=== PATIENT | female | born 1940 | race African-American/Black ===

== ENCOUNTER 2023-05-25 19:21 | Inpatient (IN) | payer MEDICARE, MEDICAID ==
[2023-05-25 19:57] LABS: Bilirubin Neg (Negative); Blood, Urine 25 (Negative); Clarity Slightly Cloudy (Clear); Glucose, Urine (Dipstick) Normal (Negative); Ketone, Urine 5 mg/dL (Negative); Leukocyte 100 (Negative); Nitrite Negative (Negative); Protein, Urine (Dipstick) 30 mg/dl (Neg-Trace); Specific Gravity, Urine 1.015 (1.005-1.030); Urobilinogen Normal mg/dL (Less than 2)
[2023-05-25 20:09] LABS: #Eosinphils 0.1 10x3/uL (0.0-0.5); #Monocytes 0.8 10x3/uL (0.0-1.1); #Neutrophils 7.9 10x3/uL (1.5-8.4); %Basophils 0.3 % (0.0-2.0); %Eosinophils 0.5 % (0.0-6.0); %Lymphocytes 8.8 % (18.0-47.0); %Monocytes 8.7 % (0.0-10.0); %Neutrophils 81.5 % (40.0-75.0); Mean Corpuscular HGB CONC 32.3 g/dL (32.0-36.0); Mean Corpuscular Hemoglobin 31.6 pg (27.0-33.0); Mean Corpuscular Volume 98.1 fl (81.6-98.3); Platelet Count 347 10x3/uL (150-450); RBC Distribution Width 16.6 % (11.5-14.5); Red Blood Cell (RBC) Count 3.16 10x6/uL (3.90-5.03); White Blood Cell (WBC) Count 9.7 10x3/uL (3.5-10.5)
[2023-05-25 20:10] LABS: RBC/HPF 0-3 HPF (0-3)
[2023-05-25 20:11] LABS: Bacteria/HPF 4+ HPF (None Seen); CAUTI Indications for Culture Alt mental st,lethar; Squamous Epithelial 0-3 HPF (0-3); WBC/HPF 0-3 HPF (0-3)
[2023-05-25 20:12] LABS: Urine Culture Reflex No No
[2023-05-25 20:25] LABS: ALT (SGPT) 19 U/L (8-55); AST (SGOT) 31 U/L (5-34); Albumin 2.8 g/dL (3.4-4.8); Alkaline Phosphatase 86 U/L (40-110); Anion Gap 23 mmol/L (10-20); BUN (Urea Nitrogen) 88 mg/dL (9.8-20.1); Bilirubin, Total 0.5 mg/dL (0.2-1.2); Calc. Creatinine Clearance 0 mL/min (70-130); Calcium 8.4 mg/dL (7.8-10.44); Carbon Dioxide 14 mmol/L (23-31); Chloride 116 mmol/L (98-107); Estimated GFR 5; Globulin 3.3 g/dL (2.4-3.5); Glucose 85 mg/dL (83-110); Lipase 34 U/L (8-78); Potassium 4.5 mmol/L (3.5-5.1); Protein, Total 6.1 g/dL (5.8-8.1); Sodium 148 mmol/L (136-145)
[2023-05-25] MEDS ORDERED: cefTRIAXone (ROCEPHIN) 2 GM VIAL ONE (20:30)
[2023-05-25 20:31] LABS: Troponin I 0.035 ng/mL (< 0.028)
[2023-05-25 20:43] LABS: SARS-CoV-2 NAA Rapid Test Not Detected (NotDetected)
[2023-05-25] MEDS ORDERED: Acetaminophen 325 MG TAB PO PRN (21:14)
[2023-05-25] MEDS ORDERED: Ondansetron PF 4 MG/2 ML Vial IVP PRN (21:14)
[2023-05-25] MEDS ORDERED: Acetaminophen 650 MG Suppository PR PRN (21:14)
[2023-05-25] MEDS ORDERED: Communication Order-Pharmacy FS ONE (21:16)
[2023-05-25 21:19] LABS: Free T4 (Free Thyroxine) 0.66 ng/dL (0.70-1.48); Thyroid Stimulating Hormone 98.3817 uIU/mL (0.35-4.94)
[2023-05-25] MEDS ORDERED: Lactated Ringer's 1,000 ML IV SCH (21:45)
[2023-05-25] MEDS ORDERED: Levothyroxine Sodium 200 MCG VIAL IVP SCH (21:45)
[2023-05-25 22:10] LABS: Magnesium 2.1 mg/dL (1.6-2.6); Phosphorus 6.6 mg/dL (2.3-4.7)
[2023-05-25] MEDS ORDERED: Vancomycin Dose by Levels Sliding Scale (Wt <71) FS SCH (23:15)
[2023-05-25] MEDS ORDERED: VANCOMYCIN 1.25 GM/250 ML BAG 1.25 GM in Premix 1 BAG IVPB SCH (23:15)
[2023-05-25] MEDS: Hydrocortisone Sod Succ/PF 100 mg/2 ml Vial IVP SCH (23:18)
[2023-05-25] MEDS: Liothyronine Sodium 5 MCG TAB PO SCH (23:37)
[2023-05-26] MEDS: Liothyronine Sodium 5 MCG TAB PO SCH ×4 (00:22→21:26)
[2023-05-26 00:26] LABS: Anion Gap 23 mmol/L (10-20); BUN (Urea Nitrogen) 80 mg/dL (9.8-20.1); Calc. Creatinine Clearance 7 mL/min (70-130); Calcium 8.2 mg/dL (7.8-10.44); Chloride 119 mmol/L (98-107); Estimated GFR 6; Glucose 81 mg/dL (83-110); Potassium 4.6 mmol/L (3.5-5.1); Sodium 146 mmol/L (136-145)
[2023-05-26 00:28] LABS: Carbon Dioxide 9 mmol/L (23-31)
[2023-05-26] MEDS ORDERED: Sodium Bicarbonate 150 MEQ in Dextrose 5% in Water 1,000 ML IV SCH (00:45)
[2023-05-26] MEDS ORDERED: Lactated Ringer's 1,000 ML IV SCH (01:00)
[2023-05-26] MEDS: Dextrose 5%-Lactated Ringers 1,000 ML IV SCH ×2 (01:37→07:57)
[2023-05-26] MEDS: Hydrocortisone Sod Succ/PF 100 mg/2 ml Vial IVP SCH ×3 (06:15→21:20)
[2023-05-26] MEDS: Levothyroxine 100 MCG SDV IVP SCH (06:15)
[2023-05-26] MEDS ORDERED: NOREPINEPHRINE 8 MG/250 ML-D5W 250 ML IVPB SCH (06:30)
[2023-05-26 06:35] LABS: ALT (SGPT) 14 U/L (8-55); AST (SGOT) 22 U/L (5-34); Albumin 2.2 g/dL (3.4-4.8); Alkaline Phosphatase 66 U/L (40-110); Anion Gap 20 mmol/L (10-20); BUN (Urea Nitrogen) 73 mg/dL (9.8-20.1); Bilirubin, Total 0.3 mg/dL (0.2-1.2); Calc. Creatinine Clearance 8 mL/min (70-130); Calcium 7.9 mg/dL (7.8-10.44); Carbon Dioxide 12 mmol/L (23-31); Chloride 118 mmol/L (98-107); Estimated GFR 7; Globulin 3.2 g/dL (2.4-3.5); Glucose 227 mg/dL (83-110); Magnesium 1.6 mg/dL (1.6-2.6); Potassium 3.7 mmol/L (3.5-5.1); Protein, Total 5.4 g/dL (5.8-8.1); Sodium 146 mmol/L (136-145)
[2023-05-26 06:43] LABS: #Eosinphils 0.2 10x3/uL (0.0-0.5); #Monocytes 0.2 10x3/uL (0.0-1.1); #Neutrophils 8.7 10x3/uL (1.5-8.4); %Basophils 0.2 % (0.0-2.0); %Eosinophils 1.9 % (0.0-6.0); %Lymphocytes 4.1 % (18.0-47.0); %Monocytes 1.9 % (0.0-10.0); %Neutrophils 91.5 % (40.0-75.0); Hematocrit 26.5 % (34.9-44.5); Hemoglobin 8.7 g/dL (12.0-15.5); Mean Corpuscular HGB CONC 32.8 g/dL (32.0-36.0); Mean Corpuscular Volume 94.3 fl (81.6-98.3); Mean Platelet Volume 9.9 fl (7.4-10.4); Platelet Count 307 10x3/uL (150-450); RBC Distribution Width 16.4 % (11.5-14.5); Red Blood Cell (RBC) Count 2.81 10x6/uL (3.90-5.03); White Blood Cell (WBC) Count 9.5 10x3/uL (3.5-10.5)
[2023-05-26 06:56] LABS: Free T4 (Free Thyroxine) 1.52 ng/dL (0.70-1.48); Thyroid Stimulating Hormone 25.6109 uIU/mL (0.35-4.94)
[2023-05-26] MEDS: Famotidine/PF 20 mg/2ml Vial SLOW IVP SCH (07:35)
[2023-05-26] MEDS: Heparin 5,000 UNITS/ML VIAL SC SCH ×3 (07:36→21:21)
[2023-05-26] MEDS: Aspirin 81 mg Enteric Coated Tablet PO SCH (08:02)
[2023-05-26] MEDS ORDERED: Vancomycin 1 GM in Sodium Chloride 0.9% 250 ML 300 ML IVPB SCH (09:00)
[2023-05-26] MEDS ORDERED: OLANZapine 2.5 MG TAB PO SCH ×2 (09:00→16:00)
[2023-05-26] MEDS ORDERED: Dextrose 5% in Water 1,000 ML IV PRN (12:18)
[2023-05-26] MEDS ORDERED: Insulin Regular 300 UNITS/3 ML VIAL SC PRN (12:18)
[2023-05-26] MEDS ORDERED: Dextrose 50% Abboject 50 ML SYRINGE SLOW IVP PRN (12:18)
[2023-05-26] MEDS ORDERED: Glucagon 1 MG/ML KIT IM PRN (12:18)
[2023-05-26 12:31] LABS: Anion Gap 18 mmol/L (10-20); BUN (Urea Nitrogen) 70 mg/dL (9.8-20.1); Calc. Creatinine Clearance 8 mL/min (70-130); Carbon Dioxide 15 mmol/L (23-31); Chloride 115 mmol/L (98-107); Estimated GFR 7; Glucose 301 mg/dL (83-110); Potassium 3.6 mmol/L (3.5-5.1); Sodium 144 mmol/L (136-145)
[2023-05-26] MEDS: Albumin 25% 25 GM (100 mL) BOT IVPB SCH ×2 (12:44→17:53)
[2023-05-26] MEDS: Sodium Bicarbonate 100 MEQ in Dextrose 5% in Water 1,000 ML IV SCH (12:48)
[2023-05-26] MEDS: Insulin Regular 300 UNITS/3 ML VIAL SC PRN ×2 (12:57→16:35)
[2023-05-26] MEDS: Cholecalciferol 1,000 UNITS (25 MCG) TAB PO SCH (20:44)
[2023-05-26] MEDS: Cyanocobalamin (Vitamin B-12) 1,000 MCG TAB PO SCH (20:44)
[2023-05-26] MEDS: Folic Acid 1 MG TAB PO SCH (20:44)
[2023-05-26] MEDS: Thiamine HCl 200 MG/2 ML VIAL SLOW IVP SCH (21:20)
[2023-05-26] MEDS: cefTRIAXone\\ROCEPHIN 2 GM in Sodium Chloride 0.9% 100 ML IVPB SCH (21:20)
[2023-05-26] MEDS: Latanoprost 0.005% Ophth Soln 2.5 ml Bottle EA EYE SCH (21:35)
[2023-05-27] MEDS ORDERED: Vancomycin HCl 250 MG in Sodium Chloride 0.9% 100 ML IV SCH (00:30)
[2023-05-27] MEDS: Albumin 25% 25 GM (100 mL) BOT IVPB SCH ×3 (00:36→12:27)
[2023-05-27 03:50] LABS: #Monocytes 0.3 10x3/uL (0.0-1.1); #Neutrophils 12.4 10x3/uL (1.5-8.4); %Basophils 0.1 % (0.0-2.0); %Lymphocytes 4.2 % (18.0-47.0); %Monocytes 1.9 % (0.0-10.0); %Neutrophils 93.1 % (40.0-75.0); Hematocrit 23.5 % (34.9-44.5); Hemoglobin 8.3 g/dL (12.0-15.5); Mean Corpuscular HGB CONC 35.3 g/dL (32.0-36.0); Mean Corpuscular Hemoglobin 32.5 pg (27.0-33.0); Mean Corpuscular Volume 92.2 fl (81.6-98.3); Platelet Count 251 10x3/uL (150-450); RBC Distribution Width 16.2 % (11.5-14.5); Red Blood Cell (RBC) Count 2.55 10x6/uL (3.90-5.03); White Blood Cell (WBC) Count 13.3 10x3/uL (3.5-10.5)
[2023-05-27 04:06] LABS: ALT (SGPT) 11 U/L (8-55); AST (SGOT) 14 U/L (5-34); Albumin 3.4 g/dL (3.4-4.8); Alkaline Phosphatase 53 U/L (40-110); Anion Gap 18 mmol/L (10-20); BUN (Urea Nitrogen) 66 mg/dL (9.8-20.1); Bilirubin, Total 0.5 mg/dL (0.2-1.2); Calc. Creatinine Clearance 9 mL/min (70-130); Calcium 8.7 mg/dL (7.8-10.44); Carbon Dioxide 19 mmol/L (23-31); Chloride 114 mmol/L (98-107); Estimated GFR 8; Globulin 2.7 g/dL (2.4-3.5); Glucose 143 mg/dL (83-110); Potassium 3.3 mmol/L (3.5-5.1); Protein, Total 6.1 g/dL (5.8-8.1); Sodium 148 mmol/L (136-145)
[2023-05-27 04:22] LABS: Free T4 (Free Thyroxine) 1.55 ng/dL (0.70-1.48); Thyroid Stimulating Hormone 11.7926 uIU/mL (0.35-4.94)
[2023-05-27] MEDS: Levothyroxine 100 MCG SDV IVP SCH (06:12)
[2023-05-27] MEDS: Hydrocortisone Sod Succ/PF 100 mg/2 ml Vial IVP SCH ×3 (06:12→22:24)
[2023-05-27] MEDS: Liothyronine Sodium 5 MCG TAB PO SCH ×2 (06:13→14:13)
[2023-05-27] MEDS: Aspirin 81 mg Enteric Coated Tablet PO SCH (09:14)
[2023-05-27] MEDS: Famotidine/PF 20 mg/2ml Vial SLOW IVP SCH (09:14)
[2023-05-27] MEDS: Sodium Bicarbonate 100 MEQ in Dextrose 5% in Water 1,000 ML IV SCH (09:44)
[2023-05-27] MEDS: Heparin 5,000 UNITS/ML VIAL SC SCH ×3 (10:07→22:36)
[2023-05-27] MEDS ORDERED: Sodium Bicarbonate 50 MEQ in Dextrose 5% in Water 1,000 ML IV SCH (12:00)
[2023-05-27] MEDS: Potassium Chloride 20 MEQ in Premix 1 BAG IVPB SCH ×2 (14:09→15:47)
[2023-05-27] MEDS: Thiamine HCl 200 MG/2 ML VIAL SLOW IVP SCH (22:23)
[2023-05-27] MEDS: Folic Acid 1 MG TAB PO SCH ×2 (22:24→22:48)
[2023-05-27] MEDS: Cyanocobalamin (Vitamin B-12) 1,000 MCG TAB PO SCH ×2 (22:24→22:48)
[2023-05-27] MEDS: cefTRIAXone\\ROCEPHIN 2 GM in Sodium Chloride 0.9% 100 ML IVPB SCH (22:25)
[2023-05-27] MEDS: Cholecalciferol 1,000 UNITS (25 MCG) TAB PO SCH ×2 (22:25→22:48)
[2023-05-27] MEDS: Latanoprost 0.005% Ophth Soln 2.5 ml Bottle EA EYE SCH (22:50)
[2023-05-28] MEDS ORDERED: Vancomycin HCl 500 MG in Sodium Chloride 0.9% 100 ML IVPB SCH (02:00)
[2023-05-28] MEDS ORDERED: Vancomycin Dose by Levels Sliding Scale (Wt 71-99) FS SCH (02:00)
[2023-05-28 03:24] LABS: #Monocytes 0.7 10x3/uL (0.0-1.1); #Neutrophils 11.7 10x3/uL (1.5-8.4); %Basophils 0.1 % (0.0-2.0); %Lymphocytes 7.3 % (18.0-47.0); %Monocytes 4.8 % (0.0-10.0); %Neutrophils 87.1 % (40.0-75.0); Hematocrit 26.6 % (34.9-44.5); Hemoglobin 9.2 g/dL (12.0-15.5); Mean Corpuscular HGB CONC 34.6 g/dL (32.0-36.0); Mean Corpuscular Hemoglobin 31.7 pg (27.0-33.0); Mean Corpuscular Volume 91.7 fl (81.6-98.3); Mean Platelet Volume 10.1 fl (7.4-10.4); Platelet Count 261 10x3/uL (150-450); RBC Distribution Width 16.2 % (11.5-14.5); White Blood Cell (WBC) Count 13.4 10x3/uL (3.5-10.5)
[2023-05-28] MEDS ORDERED: Labetalol HCl 100 MG/20 ML VIAL SLOW IVP PRN (03:35)
[2023-05-28 04:26] LABS: ALT (SGPT) 13 U/L (8-55); AST (SGOT) 18 U/L (5-34); Albumin 3.7 g/dL (3.4-4.8); Alkaline Phosphatase 57 U/L (40-110); Anion Gap 19 mmol/L (10-20); BUN (Urea Nitrogen) 59 mg/dL (9.8-20.1); Bilirubin, Total 0.5 mg/dL (0.2-1.2); Calc. Creatinine Clearance 11 mL/min (70-130); Calcium 9.1 mg/dL (7.8-10.44); Carbon Dioxide 21 mmol/L (23-31); Chloride 112 mmol/L (98-107); Estimated GFR 10; Globulin 2.9 g/dL (2.4-3.5); Glucose 137 mg/dL (83-110); Potassium 3.5 mmol/L (3.5-5.1); Protein, Total 6.6 g/dL (5.8-8.1); Sodium 148 mmol/L (136-145)
[2023-05-28] MEDS: hydrALAZINE 20 MG/ML VIAL SLOW IVP PRN ×3 (04:41→17:18)
[2023-05-28 05:02] LABS: Free T4 (Free Thyroxine) 1.25 ng/dL (0.70-1.48); Thyroid Stimulating Hormone 20.3995 uIU/mL (0.35-4.94)
[2023-05-28] MEDS: Levothyroxine 100 MCG SDV IVP SCH (06:25)
[2023-05-28] MEDS: Hydrocortisone Sod Succ/PF 100 mg/2 ml Vial IVP SCH ×2 (06:25→14:18)
[2023-05-28] MEDS: Heparin 5,000 UNITS/ML VIAL SC SCH ×3 (08:59→14:45)
[2023-05-28] MEDS: Famotidine/PF 20 mg/2ml Vial SLOW IVP SCH (08:59)
[2023-05-28] MEDS: Liothyronine Sodium 5 MCG TAB PO SCH (09:05)
[2023-05-28] MEDS: Aspirin 81 mg Enteric Coated Tablet PO SCH (09:05)
[2023-05-28] MEDS: Dextrose 5% in Water 1,000 ML IV SCH (09:43)
[2023-05-28] MEDS ORDERED: Amlodipine 10 MG TAB PO SCH (13:00)
[2023-05-28] MEDS: Cyanocobalamin (Vitamin B-12) 1,000 MCG TAB PO SCH (23:55)
[2023-05-28] MEDS: Cholecalciferol 1,000 UNITS (25 MCG) TAB PO SCH (23:55)
[2023-05-28] MEDS: Folic Acid 1 MG TAB PO SCH (23:55)
[2023-05-29] MEDS: Cholecalciferol 1,000 UNITS (25 MCG) TAB PO SCH ×2 (00:09→22:58)
[2023-05-29] MEDS: Cyanocobalamin (Vitamin B-12) 1,000 MCG TAB PO SCH ×2 (00:09→22:58)
[2023-05-29] MEDS: Folic Acid 1 MG TAB PO SCH ×2 (00:09→22:59)
[2023-05-29] MEDS: Thiamine HCl 200 MG/2 ML VIAL SLOW IVP SCH ×2 (00:09→22:10)
[2023-05-29] MEDS: Heparin 5,000 UNITS/ML VIAL SC SCH ×2 (00:10→09:54)
[2023-05-29] MEDS: cefTRIAXone\\ROCEPHIN 2 GM in Sodium Chloride 0.9% 100 ML IVPB SCH ×2 (00:10→22:09)
[2023-05-29] MEDS: Latanoprost 0.005% Ophth Soln 2.5 ml Bottle EA EYE SCH ×2 (00:25→22:12)
[2023-05-29 05:51] LABS: #Monocytes 0.7 10x3/uL (0.0-1.1); #Neutrophils 7.5 10x3/uL (1.5-8.4); %Basophils 0.1 % (0.0-2.0); %Eosinophils 0.1 % (0.0-6.0); %Monocytes 7.5 % (0.0-10.0); %Neutrophils 80.6 % (40.0-75.0); Hematocrit 31.4 % (34.9-44.5); Hemoglobin 10.8 g/dL (12.0-15.5); Mean Corpuscular HGB CONC 34.4 g/dL (32.0-36.0); Mean Corpuscular Volume 93.2 fl (81.6-98.3); Mean Platelet Volume 10.1 fl (7.4-10.4); Platelet Count 268 10x3/uL (150-450); Red Blood Cell (RBC) Count 3.37 10x6/uL (3.90-5.03); White Blood Cell (WBC) Count 9.4 10x3/uL (3.5-10.5)
[2023-05-29 05:58] LABS: ALT (SGPT) 14 U/L (8-55); AST (SGOT) 23 U/L (5-34); Albumin 3.5 g/dL (3.4-4.8); Alkaline Phosphatase 63 U/L (40-110); Anion Gap 18 mmol/L (10-20); BUN (Urea Nitrogen) 59 mg/dL (9.8-20.1); Bilirubin, Total 0.4 mg/dL (0.2-1.2); Calc. Creatinine Clearance 11 mL/min (70-130); Carbon Dioxide 21 mmol/L (23-31); Chloride 110 mmol/L (98-107); Estimated GFR 11; Globulin 3.1 g/dL (2.4-3.5); Glucose 116 mg/dL (83-110); Potassium 3.1 mmol/L (3.5-5.1); Protein, Total 6.6 g/dL (5.8-8.1); Sodium 146 mmol/L (136-145)
[2023-05-29 06:07] LABS: Vancomycin, Random 16.7 ug/mL (See Comment)
[2023-05-29 06:09] LABS: Free T4 (Free Thyroxine) 1.08 ng/dL (0.70-1.48); Thyroid Stimulating Hormone 25.3063 uIU/mL (0.35-4.94)
[2023-05-29] MEDS: Dextrose 5% in Water 1,000 ML IV SCH (06:16)
[2023-05-29] MEDS: Levothyroxine 100 MCG SDV IVP SCH (06:48)
[2023-05-29] MEDS ORDERED: Vancomycin HCl 500 MG in Sodium Chloride 0.9% 100 ML IVPB SCH (09:00)
[2023-05-29] MEDS: Potassium Chloride 20 MEQ in Premix 1 BAG IVPB SCH ×2 (09:49→13:42)
[2023-05-29] MEDS: Famotidine/PF 20 mg/2ml Vial SLOW IVP SCH (09:51)
[2023-05-29] MEDS: Amlodipine 10 MG TAB PO SCH (09:54)
[2023-05-29] MEDS: Liothyronine Sodium 5 MCG TAB PO SCH (09:55)
[2023-05-29] MEDS: Aspirin 81 mg Enteric Coated Tablet PO SCH (09:55)
[2023-05-29 10:54] LABS: Hematocrit 29.5 % (34.9-44.5); Hemoglobin 10.1 g/dL (12.0-15.5)
[2023-05-29] MEDS ORDERED: Potassium Chloride 20 MEQ in Premix 1 BAG IVPB SCH (13:00)
[2023-05-29] MEDS: Pantoprazole 40 MG VIAL IVP SCH ×2 (13:42→22:10)
[2023-05-29 14:05] LABS: Hematocrit 29.6 % (34.9-44.5); Hemoglobin 9.9 g/dL (12.0-15.5)
[2023-05-29 21:12] LABS: Hematocrit 29.8 % (34.9-44.5); Hemoglobin 9.8 g/dL (12.0-15.5)
[2023-05-30 04:19] LABS: Phosphorus 2.8 mg/dL (2.3-4.7); Vancomycin, Random 15.6 ug/mL (See Comment)
[2023-05-30 04:21] LABS: ALT (SGPT) 14 U/L (8-55); AST (SGOT) 18 U/L (5-34); Albumin 3.3 g/dL (3.4-4.8); Alkaline Phosphatase 62 U/L (40-110); Anion Gap 17 mmol/L (10-20); BUN (Urea Nitrogen) 67 mg/dL (9.8-20.1); Bilirubin, Total 0.5 mg/dL (0.2-1.2); Calc. Creatinine Clearance 11 mL/min (70-130); Calcium 8.7 mg/dL (7.8-10.44); Carbon Dioxide 23 mmol/L (23-31); Chloride 110 mmol/L (98-107); Estimated GFR 11; Glucose 99 mg/dL (83-110); Magnesium 1.4 mg/dL (1.6-2.6); Potassium 3.6 mmol/L (3.5-5.1); Protein, Total 6.3 g/dL (5.8-8.1); Sodium 146 mmol/L (136-145)
[2023-05-30 04:27] LABS: #Eosinphils 0.1 10x3/uL (0.0-0.5); #Monocytes 0.9 10x3/uL (0.0-1.1); #Neutrophils 6.3 10x3/uL (1.5-8.4); %Basophils 0.2 % (0.0-2.0); %Eosinophils 1.4 % (0.0-6.0); %Lymphocytes 15.6 % (18.0-47.0); %Monocytes 9.9 % (0.0-10.0); %Neutrophils 72.4 % (40.0-75.0); Hematocrit 29.5 % (34.9-44.5); Hemoglobin 9.8 g/dL (12.0-15.5); Mean Corpuscular HGB CONC 33.2 g/dL (32.0-36.0); Mean Corpuscular Volume 93.4 fl (81.6-98.3); Mean Platelet Volume 10.5 fl (7.4-10.4); Platelet Count 225 10x3/uL (150-450); Red Blood Cell (RBC) Count 3.16 10x6/uL (3.90-5.03); White Blood Cell (WBC) Count 8.8 10x3/uL (3.5-10.5)
[2023-05-30] MEDS ORDERED: Vancomycin HCl 500 MG in Sodium Chloride 0.9% 100 ML IVPB SCH (05:00)
[2023-05-30] MEDS: Levothyroxine 100 MCG SDV IVP SCH (05:33)
[2023-05-30] MEDS ORDERED: Magnesium 2 GM/50 ML(in water) 2 GM in Premix 1 BAG IVPB SCH (09:00)
[2023-05-30] MEDS: Famotidine/PF 20 mg/2ml Vial SLOW IVP SCH (09:15)
[2023-05-30] MEDS: Amlodipine 10 MG TAB PO SCH (09:15)
[2023-05-30] MEDS: Liothyronine Sodium 5 MCG TAB PO SCH (09:16)
[2023-05-30] MEDS: Aspirin 81 mg Enteric Coated Tablet PO SCH (09:16)
[2023-05-30] MEDS: Dextrose 5% in Water 1,000 ML IV SCH ×3 (09:33→17:28)
[2023-05-30] MEDS: Potassium Chloride 20 MEQ in Premix 1 BAG IVPB SCH ×2 (09:35→12:55)
[2023-05-30] MEDS: Pantoprazole 40 MG VIAL IVP SCH (12:56)
[2023-05-30] MEDS: cefTRIAXone\\ROCEPHIN 2 GM in Sodium Chloride 0.9% 100 ML IVPB SCH (21:13)
[2023-05-30] MEDS: Thiamine HCl 200 MG/2 ML VIAL SLOW IVP SCH (21:13)
[2023-05-30] MEDS: Folic Acid 1 MG TAB PO SCH (21:14)
[2023-05-30] MEDS: Cyanocobalamin (Vitamin B-12) 1,000 MCG TAB PO SCH (21:14)
[2023-05-30] MEDS: Cholecalciferol 1,000 UNITS (25 MCG) TAB PO SCH (21:14)
[2023-05-30] MEDS: Latanoprost 0.005% Ophth Soln 2.5 ml Bottle EA EYE SCH ×2 (21:20→21:23)
[2023-05-31] MEDS: Pantoprazole 40 MG VIAL IVP SCH ×2 (00:58→11:02)
[2023-05-31] MEDS: Dextrose 5% in Water 1,000 ML IV SCH ×3 (01:01→21:39)
[2023-05-31 05:13] LABS: #Eosinphils 0.3 10x3/uL (0.0-0.5); #Neutrophils 5.5 10x3/uL (1.5-8.4); %Basophils 0.3 % (0.0-2.0); %Eosinophils 3.2 % (0.0-6.0); %Lymphocytes 13.4 % (18.0-47.0); %Neutrophils 69.8 % (40.0-75.0); ALT (SGPT) 12 U/L (8-55); AST (SGOT) 16 U/L (5-34); Albumin 2.9 g/dL (3.4-4.8); Alkaline Phosphatase 56 U/L (40-110); Anion Gap 14 mmol/L (10-20); BUN (Urea Nitrogen) 62 mg/dL (9.8-20.1); Bilirubin, Total 0.5 mg/dL (0.2-1.2); Calc. Creatinine Clearance 13 mL/min (70-130); Calcium 8.3 mg/dL (7.8-10.44); Carbon Dioxide 22 mmol/L (23-31); Chloride 108 mmol/L (98-107); Estimated GFR 13; Globulin 2.5 g/dL (2.4-3.5); Glucose 118 mg/dL (83-110); Hematocrit 23.6 % (34.9-44.5); Hemoglobin 8.1 g/dL (12.0-15.5); Mean Corpuscular HGB CONC 34.3 g/dL (32.0-36.0); Mean Corpuscular Hemoglobin 32.1 pg (27.0-33.0); Mean Corpuscular Volume 93.7 fl (81.6-98.3); Mean Platelet Volume 10.6 fl (7.4-10.4); Platelet Count 155 10x3/uL (150-450); Potassium 3.7 mmol/L (3.5-5.1); Protein, Total 5.4 g/dL (5.8-8.1); RBC Distribution Width 15.8 % (11.5-14.5); Red Blood Cell (RBC) Count 2.52 10x6/uL (3.90-5.03); Sodium 140 mmol/L (136-145); White Blood Cell (WBC) Count 7.8 10x3/uL (3.5-10.5)
[2023-05-31 05:28] LABS: Vancomycin, Random 17.9 ug/mL (See Comment)
[2023-05-31] MEDS: Levothyroxine 100 MCG SDV IVP SCH (05:39)
[2023-05-31] MEDS ORDERED: Vancomycin HCl 500 MG in Sodium Chloride 0.9% 100 ML IVPB SCH (08:00)
[2023-05-31] MEDS: Amlodipine 10 MG TAB PO SCH (09:21)
[2023-05-31] MEDS: Aspirin 81 mg Enteric Coated Tablet PO SCH (09:21)
[2023-05-31] MEDS: Liothyronine Sodium 5 MCG TAB PO SCH (09:21)
[2023-05-31] MEDS: Folic Acid 1 MG TAB PO SCH (21:17)
[2023-05-31] MEDS: Cyanocobalamin (Vitamin B-12) 1,000 MCG TAB PO SCH (21:17)
[2023-05-31] MEDS: Cholecalciferol 1,000 UNITS (25 MCG) TAB PO SCH (21:17)
[2023-05-31] MEDS: Latanoprost 0.005% Ophth Soln 2.5 ml Bottle EA EYE SCH (21:17)
[2023-05-31] MEDS: cefTRIAXone\\ROCEPHIN 2 GM in Sodium Chloride 0.9% 100 ML IVPB SCH (21:37)
[2023-05-31] MEDS: Thiamine HCl 200 MG/2 ML VIAL SLOW IVP SCH (21:38)
[2023-06-01] MEDS: Pantoprazole 40 MG VIAL IVP SCH ×2 (00:49→10:03)
[2023-06-01] MEDS: Sodium Chloride 0.9% (PF) 10 ML VIAL FS PRN (00:49)
[2023-06-01] MEDS: Levothyroxine 100 MCG SDV IVP SCH (05:43)
[2023-06-01 06:57] VITALS: BMI 25.8
[2023-06-01] MEDS: Dextrose 5% in Water 1,000 ML IV SCH ×2 (10:03→21:32)
[2023-06-01] MEDS: Aspirin 81 mg Enteric Coated Tablet PO SCH (10:04)
[2023-06-01] MEDS: Liothyronine Sodium 5 MCG TAB PO SCH (10:04)
[2023-06-01] MEDS: Amlodipine 10 MG TAB PO SCH (10:04)
[2023-06-01] MEDS: Thiamine HCl 200 MG/2 ML VIAL SLOW IVP SCH (21:25)
[2023-06-01] MEDS: Cyanocobalamin (Vitamin B-12) 1,000 MCG TAB PO SCH (21:26)
[2023-06-01] MEDS: Cholecalciferol 1,000 UNITS (25 MCG) TAB PO SCH (21:26)
[2023-06-01] MEDS: Folic Acid 1 MG TAB PO SCH (21:27)
[2023-06-01] MEDS: Latanoprost 0.005% Ophth Soln 2.5 ml Bottle EA EYE SCH (21:27)
[2023-06-02] MEDS: Pantoprazole 40 MG VIAL IVP SCH ×3 (00:02→22:54)
[2023-06-02] MEDS: Levothyroxine 100 MCG SDV IVP SCH (05:37)
[2023-06-02] MEDS: Liothyronine Sodium 5 MCG TAB PO SCH (08:30)
[2023-06-02] MEDS: Amlodipine 10 MG TAB PO SCH (08:30)
[2023-06-02] MEDS: Aspirin 81 mg Enteric Coated Tablet PO SCH (08:30)
[2023-06-02] MEDS: Dextrose 5% in Water 1,000 ML IV SCH (11:00)
[2023-06-02] MEDS: Latanoprost 0.005% Ophth Soln 2.5 ml Bottle EA EYE SCH (21:00)
[2023-06-02] MEDS: Thiamine HCl 200 MG/2 ML VIAL SLOW IVP SCH (22:49)
[2023-06-02] MEDS: Cholecalciferol 1,000 UNITS (25 MCG) TAB PO SCH (22:55)
[2023-06-02] MEDS: Folic Acid 1 MG TAB PO SCH (22:55)
[2023-06-02] MEDS: Cyanocobalamin (Vitamin B-12) 1,000 MCG TAB PO SCH (22:55)
[2023-06-03] MEDS: Dextrose 5% in Water 1,000 ML IV SCH (06:22)
[2023-06-03] MEDS: Levothyroxine 100 MCG SDV IVP SCH (06:28)
[2023-06-03] MEDS: Aspirin 81 mg Enteric Coated Tablet PO SCH (08:42)
[2023-06-03] MEDS: Liothyronine Sodium 5 MCG TAB PO SCH (08:42)
[2023-06-03] MEDS: Amlodipine 10 MG TAB PO SCH (08:42)
[2023-06-03 09:12] LABS: #Eosinphils 0.3 10x3/uL (0.0-0.5); #Monocytes 0.7 10x3/uL (0.0-1.1); %Basophils 0.4 % (0.0-2.0); %Eosinophils 5.3 % (0.0-6.0); %Lymphocytes 18.1 % (18.0-47.0); Hematocrit 23.7 % (34.9-44.5); Hemoglobin 8.2 g/dL (12.0-15.5); Mean Corpuscular HGB CONC 34.6 g/dL (32.0-36.0); Mean Corpuscular Hemoglobin 32.4 pg (27.0-33.0); Mean Corpuscular Volume 93.7 fl (81.6-98.3); Mean Platelet Volume 10.9 fl (7.4-10.4); Platelet Count 161 10x3/uL (150-450); RBC Distribution Width 15.4 % (11.5-14.5); Red Blood Cell (RBC) Count 2.53 10x6/uL (3.90-5.03); White Blood Cell (WBC) Count 4.9 10x3/uL (3.5-10.5)
[2023-06-03 09:25] LABS: Anion Gap 15 mmol/L (10-20); BUN (Urea Nitrogen) 47 mg/dL (9.8-20.1); Calc. Creatinine Clearance 17 mL/min (70-130); Calcium 8.4 mg/dL (7.8-10.44); Carbon Dioxide 21 mmol/L (23-31); Chloride 106 mmol/L (98-107); Estimated GFR 17; Glucose 101 mg/dL (83-110); Potassium 3.6 mmol/L (3.5-5.1); Sodium 138 mmol/L (136-145)
[2023-06-03 09:26] LABS: Anion Gap 14 mmol/L (10-20); BUN (Urea Nitrogen) 47 mg/dL (9.8-20.1); Calc. Creatinine Clearance 17 mL/min (70-130); Calcium 8.4 mg/dL (7.8-10.44); Carbon Dioxide 21 mmol/L (23-31); Chloride 106 mmol/L (98-107); Estimated GFR 17; Glucose 100 mg/dL (83-110); Potassium 3.6 mmol/L (3.5-5.1); Sodium 137 mmol/L (136-145)
[2023-06-03] MEDS: Pantoprazole 40 MG VIAL IVP SCH (10:39)
[2023-06-03] MEDS ORDERED: Potassium Chloride 20 MEQ TAB PO SCH (11:00)
[2023-06-03] MEDS: Potassium Chloride 20 MEQ in Premix 1 BAG IVPB SCH ×2 (12:53→14:16)
[2023-06-04] MEDS: Thiamine HCl 200 MG/2 ML VIAL SLOW IVP SCH ×2 (01:06→21:18)
[2023-06-04] MEDS: Pantoprazole 40 MG VIAL IVP SCH ×2 (01:06→11:02)
[2023-06-04] MEDS: Cholecalciferol 1,000 UNITS (25 MCG) TAB PO SCH ×2 (01:07→21:18)
[2023-06-04] MEDS: Dextrose 5% in Water 1,000 ML IV SCH ×2 (01:07→21:18)
[2023-06-04] MEDS: Latanoprost 0.005% Ophth Soln 2.5 ml Bottle EA EYE SCH ×2 (01:08→21:18)
[2023-06-04] MEDS: Cyanocobalamin (Vitamin B-12) 1,000 MCG TAB PO SCH ×2 (01:08→21:18)
[2023-06-04] MEDS: Folic Acid 1 MG TAB PO SCH ×2 (01:08→21:18)
[2023-06-04] MEDS: Levothyroxine 100 MCG SDV IVP SCH (06:12)
[2023-06-04] MEDS: Amlodipine 10 MG TAB PO SCH (09:29)
[2023-06-04] MEDS: Aspirin 81 mg Enteric Coated Tablet PO SCH (09:29)
[2023-06-04] MEDS: Liothyronine Sodium 5 MCG TAB PO SCH (09:29)
[2023-06-04] MEDS: Sodium Chloride 0.9% (PF) 10 ML VIAL FS PRN (23:30)
[2023-06-05] MEDS: Pantoprazole 40 MG VIAL IVP SCH ×3 (00:07→22:24)
[2023-06-05] MEDS: Levothyroxine 100 MCG SDV IVP SCH (06:23)
[2023-06-05] MEDS: Liothyronine Sodium 5 MCG TAB PO SCH (08:56)
[2023-06-05] MEDS: Aspirin 81 mg Enteric Coated Tablet PO SCH (08:56)
[2023-06-05] MEDS: Amlodipine 10 MG TAB PO SCH (08:56)
[2023-06-05] MEDS: Dextrose 5% in Water 1,000 ML IV SCH (15:55)
[2023-06-05] MEDS: Cyanocobalamin (Vitamin B-12) 1,000 MCG TAB PO SCH ×3 (22:00→22:35)
[2023-06-05] MEDS: Cholecalciferol 1,000 UNITS (25 MCG) TAB PO SCH ×3 (22:00→22:35)
[2023-06-05] MEDS: Folic Acid 1 MG TAB PO SCH ×3 (22:00→22:36)
[2023-06-05] MEDS: Latanoprost 0.005% Ophth Soln 2.5 ml Bottle EA EYE SCH (22:24)
[2023-06-05] MEDS: Thiamine HCl 200 MG/2 ML VIAL SLOW IVP SCH (22:24)
[2023-06-06 04:38] LABS: Anion Gap 13 mmol/L (10-20); BUN (Urea Nitrogen) 38 mg/dL (9.8-20.1); Calc. Creatinine Clearance 17 mL/min (70-130); Calcium 8.4 mg/dL (7.8-10.44); Carbon Dioxide 19 mmol/L (23-31); Chloride 106 mmol/L (98-107); Estimated GFR 17; Glucose 103 mg/dL (83-110); Sodium 134 mmol/L (136-145)
[2023-06-06] MEDS: Levothyroxine 100 MCG SDV IVP SCH (07:04)
[2023-06-06] MEDS: Amlodipine 10 MG TAB PO SCH (09:35)
[2023-06-06] MEDS: Aspirin 81 mg Enteric Coated Tablet PO SCH (09:36)
[2023-06-06] MEDS: Liothyronine Sodium 5 MCG TAB PO SCH (09:36)
[2023-06-06] MEDS: Dextrose 5% in Water 1,000 ML IV SCH (11:12)
[2023-06-06] MEDS: Pantoprazole 40 MG VIAL IVP SCH (13:06)
[2023-06-07] MEDS: Thiamine HCl 200 MG/2 ML VIAL SLOW IVP SCH ×2 (00:31→22:05)
[2023-06-07] MEDS: Pantoprazole 40 MG VIAL IVP SCH ×3 (00:33→22:05)
[2023-06-07] MEDS: Latanoprost 0.005% Ophth Soln 2.5 ml Bottle EA EYE SCH ×2 (00:34→22:04)
[2023-06-07] MEDS: Cyanocobalamin (Vitamin B-12) 1,000 MCG TAB PO SCH ×2 (00:36→22:03)
[2023-06-07] MEDS: Cholecalciferol 1,000 UNITS (25 MCG) TAB PO SCH ×2 (00:36→22:03)
[2023-06-07] MEDS: Folic Acid 1 MG TAB PO SCH ×2 (00:37→22:03)
[2023-06-07] MEDS: Levothyroxine 100 MCG SDV IVP SCH (06:37)
[2023-06-07] MEDS: Dextrose 5% in Water 1,000 ML IV SCH (06:45)
[2023-06-07] MEDS: Amlodipine 10 MG TAB PO SCH (09:20)
[2023-06-07] MEDS: Liothyronine Sodium 5 MCG TAB PO SCH (09:20)
[2023-06-07] MEDS: Aspirin 81 mg Enteric Coated Tablet PO SCH (09:20)
[2023-06-08] MEDS: Dextrose 5% in Water 1,000 ML IV SCH (03:25)
[2023-06-08] MEDS: Levothyroxine 100 MCG SDV IVP SCH (05:39)
[2023-06-08] MEDS: Amlodipine 10 MG TAB PO SCH (10:57)
[2023-06-08] MEDS: Liothyronine Sodium 5 MCG TAB PO SCH (10:58)
[2023-06-08] MEDS: Aspirin 81 mg Enteric Coated Tablet PO SCH (10:58)
[2023-06-08 11:33] VITALS: BP 141/67; TEMP 98.1
== END 2023-06-08 13:55 | disposition hospice, home (50) | DRG 871 ==
LOC: CSHERS 19:21 → CSHIMCU 21:13 → CSHTELE 05-28 18:20
PROVIDERS: ADMIT Family Medicine; ATTEND Internal Medicine
PROC: 30233J1 Transfusion of Nonautologous Serum Albumin into Peripheral Vein, Percutaneous Approach (ICD-10-PCS; principal; 2023-05-26)
PROC: 3E03329 Introduction of Other Anti-infective into Peripheral Vein, Percutaneous Approach (ICD-10-PCS; 2023-05-26)
DX: A41.9 Sepsis, unspecified organism (principal); E03.5 Myxedema coma; L89.153 Pressure ulcer of sacral region, stage 3; G93.41 Metabolic encephalopathy; R65.21 Severe sepsis with septic shock; S32.9XXA Fracture of unspecified parts of lumbosacral spine and pelvis, initial encounter for closed fracture; I31.39 Other pericardial effusion (noninflammatory); K62.5 Hemorrhage of anus and rectum; N17.9 Acute kidney failure, unspecified; N18.4 Chronic kidney disease, stage 4 (severe); N39.0 Urinary tract infection, site not specified; E87.20 Acidosis, unspecified; E87.0 Hyperosmolality and hypernatremia; I95.9 Hypotension, unspecified; E87.5 Hyperkalemia; D63.1 Anemia in chronic kidney disease; H40.9 Unspecified glaucoma; I12.9 Hypertensive chronic kidney disease with stage 1 through stage 4 chronic kidney disease, or unspecified chronic kidney disease; M19.90 Unspecified osteoarthritis, unspecified site; M85.80 Other specified disorders of bone density and structure, unspecified site; M10.9 Gout, unspecified; F03.90 Unspecified dementia, unspecified severity, without behavioral disturbance, psychotic disturbance, mood disturbance, and anxiety; K57.30 Diverticulosis of large intestine without perforation or abscess without bleeding; R73.9 Hyperglycemia, unspecified; E87.8 Other disorders of electrolyte and fluid balance, not elsewhere classified; E88.09 Other disorders of plasma-protein metabolism, not elsewhere classified; R29.6 Repeated falls; Z98.41 Cataract extraction status, right eye; Z98.42 Cataract extraction status, left eye; Z11.52 Encounter for screening for COVID-19; Z82.49 Family history of ischemic heart disease and other diseases of the circulatory system
CPT/HCPCS: 36415; 36416; 51702; 70450; 71045; 74176; 80048; 80053; 80202; 81001; 82140; 82533; 83605; 83690; 83735; 84100; 84145; 84439; 84443; 84481; 84484; 85025; 86140; 86850; 86900; 86901; 87040; 87086; 93005; 93306; 96361; 96374; 97139; C9113; J0360; J0696; J1644; J1720; J1815; J3370; J3411; J3475; J3480; J3490; J7070; J7120; P9047; S0028